=== PATIENT | female | born 1965 | race Caucasian/White ===

== ENCOUNTER 2016-11-21 09:54 | Emergency (ER) | payer SELFPAY ==
[2016-11-21 09:59] VITALS: BP 132/65
--- NOTE | 2016-11-21 11:11 | ER Document Report ---
HPI - HPI Patient complains to provider of: medication refill Onset: This morning Quality of pain: No pain Pain Level: Denies Context: Patient presents to the emergency department with request for medication refill for her blood pressure. Patient reports her provider Pham Gifford recently moved from [facility] and she ran out of medications this morning. She has not established herself with another provider. She denies all symptoms today she denies headache fever vomiting diarrhea. She just request a medication refill. Associated Symptoms: None Exacerbated by: Denies Relieved by: Denies Similar symptoms previously: Yes Recently seen / treated by doctor: No - REPRODUCTIVE LMP: menopause Reproductive: DENIES: : - DERM Skin Color: Normal Past Medical History - Social History Smoking Status: Current Every Day Smoker Cigarette use (# per day): Yes - 1ppd Frequency of alcohol use: None Drug Abuse: None Lives with: Family Family History: Arthritis, CAD, COPD, DM, Hyperlipidemia, Hypertension Patient has suicidal ideation: No Patient has homicidal ideation: No - Past Medical History Cardiac Medical History: Reports: Hx Heart Attack - 2009, Hx Hypercholesterolemia, Hx Hypertension Pulmonary Medical History: Reports: Hx COPD Renal/ Medical History: Denies: Hx Peritoneal Dialysis Musculoskeltal Medical History: Reports Hx Musculoskeletal Trauma - right ring finger Traumatic Medical History: Reports: Hx Fractures - finger Past Surgical History: Reports: Hx Adenoidectomy, Hx Oral Surgery - dental surgery, Hx Tonsillectomy, Other - mastoidectomy both erars - Immunizations Immunizations up to date: Yes Hx Diphtheria, Pertussis, Tetanus Vaccination: Yes - 10/07/2005 Vertical Provider Document - CONSTITUTIONAL Agree With Documented VS: Yes Exam Limitations: No Limitations General Appearance: WD/WN, No Apparent Distress - INFECTION CONTROL TRAVEL OUTSIDE OF THE [place]. IN LAST 30 DAYS: No - HEENT HEENT: Atraumatic, Normocephalic - RESPIRATORY Respiratory: Breath Sounds Normal, No Respiratory Distress O2 Sat by Pulse Oximetry: 96 - CARDIOVASCULAR Cardiovascular: Regular Rate - MUSCULOSKELETAL/EXTREMETIES Musculoskeletal/Extremeties: ANDRAE BRICEÑO - NEURO Level of Consciousness: Awake, Alert, Appropriate Motor/Sensory: No Motor Deficit - DERM Integumentary: Warm, Dry Course - Vital Signs Vital signs: Temp Pulse Resp BP Pulse Ox 98.1 F 99 16 132/65 H 96 11/21/16 09:58 11/21/16 09:58 11/21/16 09:58 11/21/16 09:58 11/21/16 09:58 Discharge - Discharge Clinical Impression: Medication refill, high blood pressure Condition: Stable Disposition: HOME, SELF-CARE Instructions: Angiotensin Converting Enzyme Inhibitor Medication ([facility]), High Blood Pressure ([facility]) Additional Instructions: *You have been evaluated for medication refill for your high blood pressure * Monitor your blood pressure *Take medication as prescribed *Follow up with a primary care provider within one week to establish care *Return to ED for worsening condition, changes, needs Prescriptions: Lisinopril/Hydrochlorothiazide [Lisinopril-Hctz 20-25 mg Tab] 1 each PO DAILY # 30 tablet Forms: Elevated Blood Pressure, Smoking Cessation Education
== END 2016-11-21 11:16 | disposition home or self-care (01) ==
LOC: ER 09:54
DX: Z76.0 Encounter for issue of repeat prescription (principal); I10 Essential (primary) hypertension; F17.210 Nicotine dependence, cigarettes, uncomplicated
CPT/HCPCS: 99281

== ENCOUNTER 2017-03-01 09:36 | Emergency (ER) | payer SELFPAY ==
[2017-03-01 09:58] VITALS: BP 118/66
--- NOTE | 2017-03-01 10:39 | ER Document Report ---
HPI - HPI Patient complains to provider of: left lower toothache Onset: Yesterday Onset/Duration: Sudden Quality of pain: Throbbing Severity: Mild Pain Level: 2 Context: States her fillings have started falling out of her teeth and left lower molar started hurting yesterday. Patient states pain radiates to left ear. Associated Symptoms: None Exacerbated by: Denies Relieved by: Denies Similar symptoms previously: Yes Recently seen / treated by doctor: No - ROS ROS below otherwise negative: Yes Systems Reviewed and Negative: Yes All other systems reviewed and negative - CONSTITUTIONAL Constitutional: DENIES: Fever - EENT EENT: DENIES: Congestion - NEURO Neurology: DENIES: Headache - CARDIOVASCULAR Cardiovascular: DENIES: Chest pain - RESPIRATORY Respiratory: DENIES: Trouble Breathing - GASTROINTESTINAL Gastrointestinal: DENIES: Abdominal Pain - URINARY Urinary: DENIES: Dysuria - REPRODUCTIVE Reproductive: DENIES: : - MUSCULOSKELETAL Musculoskeletal: DENIES: Extremity pain - DERM Skin Color: Normal Skin Problems: None Past Medical History - General Information source: Patient - Social History Smoking Status: Current Every Day Smoker Cigarette use (# per day): Yes Frequency of alcohol use: None Drug Abuse: None Lives with: Family Family History: Arthritis, CAD, COPD, DM, Hyperlipidemia, Hypertension Patient has suicidal ideation: No Patient has homicidal ideation: No - Past Medical History Cardiac Medical History: Reports: Hx Heart Attack - 2009, Hx Hypercholesterolemia, Hx Hypertension Pulmonary Medical History: Reports: Hx COPD Musculoskeltal Medical History: Reports Hx Musculoskeletal Trauma - right ring finger Traumatic Medical History: Reports: Hx Fractures - finger Past Surgical History: Reports: Hx Adenoidectomy, Hx Oral Surgery - dental surgery, Hx Tonsillectomy, Other - mastoidectomy both erars - Immunizations Immunizations up to date: Yes Hx Diphtheria, Pertussis, Tetanus Vaccination: Yes - 10/07/2005 Vertical Provider Document - CONSTITUTIONAL Agree With Documented VS: Yes Exam Limitations: No Limitations General Appearance: WD/WN, No Apparent Distress - INFECTION CONTROL TRAVEL OUTSIDE OF THE [place].S. IN LAST 30 DAYS: No - HEENT HEENT: Atraumatic, Normal ENT Exam, Normocephalic Mouth Diagram: 1 - decay Notes: Patient has history of cholesteatoma left ear, no inflammation or infection noted on exam. - NECK Neck: Normal Inspection, Supple - RESPIRATORY Respiratory: Breath Sounds Normal, No Respiratory Distress O2 Sat by Pulse Oximetry: 100 - CARDIOVASCULAR Cardiovascular: Regular Rate, Regular Rhythm - MUSCULOSKELETAL/EXTREMETIES Musculoskeletal/Extremeties: ANDRAE BRICEÑO - NEURO Level of Consciousness: Awake, Alert, Appropriate - DERM Integumentary: Warm, Dry, No Rash Course - Re-evaluation Re-evalutation: 03/01/17 10:41 Patient states she is allergic to Augmentin, but can take amoxicillin without any problems. - Vital Signs Vital signs: Temp Pulse Resp BP Pulse Ox 98.2 F 60 16 118/66 100 03/01/17 09:55 03/01/17 09:55 03/01/17 09:55 03/01/17 09:55 03/01/17 09:55 Discharge - Discharge Clinical Impression: Pain, dental Condition: Good Disposition: HOME, SELF-CARE Instructions: Toothache ([facility]), Penicillin V K ([facility]), Oral Narcotic Medication ( [facility]) Additional Instructions: Antibiotics and pain medications as prescribed [id number] Motrin as needed for pain You must follow-up with your dentist for further evaluation Return as needed Prescriptions: Hydrocodone/Acetaminophen [[place] 5-325 mg Tablet] 1 tab PO PRN PRN #10 tablet PRN Reason: Penicillin V Potassium [Penicillin Vk 250 mg Tablet] 250 mg PO Q6 #28 tablet
== END 2017-03-01 10:45 | disposition home or self-care (01) ==
LOC: ER 09:36
DX: K08.89 Other specified disorders of teeth and supporting structures (principal); F17.210 Nicotine dependence, cigarettes, uncomplicated
CPT/HCPCS: 99282

== ENCOUNTER 2017-07-17 09:20 | Emergency (ER) | payer SELFPAY ==
[2017-07-17] MEDS ORDERED: CLINDAMYCIN HCL 150 MG CAPSULE PO ONE (11:08)
[2017-07-17] MEDS ORDERED: BUPIVACAINE HCL 0.5 % INJ/PF 30 ML SDV INJ ONE (11:09)
--- NOTE | 2017-07-17 11:09 | ER Document Report ---
HPI - HPI Patient complains to provider of: toothache Onset: Other - past couple of days, 2-3 Onset/Duration: Gradual Quality of pain: Achy, Throbbing Severity: Moderate Pain Level: 3 Associated Symptoms: Other - radiating to her ear Exacerbated by: Denies Relieved by: Denies Similar symptoms previously: Yes Recently seen / treated by doctor: No - CARDIOVASCULAR Cardiovascular: DENIES: Chest pain - REPRODUCTIVE Reproductive: DENIES: : Past Medical History - Social History Smoking Status: Current Every Day Smoker Chew tobacco use (# tins/day): - 30 Frequency of alcohol use: None Drug Abuse: None Family History: Arthritis, CAD, COPD, DM, Hyperlipidemia, Hypertension - Past Medical History Cardiac Medical History: Reports: Hx Heart Attack - 2009, Hx Hypercholesterolemia, Hx Hypertension Pulmonary Medical History: Reports: Hx COPD Renal/ Medical History: Denies: Hx Peritoneal Dialysis Musculoskeltal Medical History: Reports Hx Musculoskeletal Trauma - right ring finger Traumatic Medical History: Reports: Hx Fractures - finger Past Surgical History: Reports: Hx Adenoidectomy, Hx Oral Surgery - dental surgery, Hx Tonsillectomy, Other - mastoidectomy both erars - Immunizations Immunizations up to date: Yes Hx Diphtheria, Pertussis, Tetanus Vaccination: Yes - 10/07/2005 Vertical Provider Document - CONSTITUTIONAL Agree With Documented VS: Yes Notes: PHYSICAL EXAM GENERAL: Alert, interacts well. HEAD: Normocephalic, atraumatic. ENT: Evidence of dental decay and tenderness without abscess at tooth 19. Oral mucosa moist, tongue midline. Uvula midline. Airway patent. No evidence of tonsillar enlargement, peritonsillar abscess, retropharyngeal abscess. NECK: Full range of motion. Supple. Trachea midline. LUNGS: Clear to auscultation bilaterally, no wheezes, rales, or rhonchi. No respiratory distress. HEART: Regular rate and rhythm. No murmurs, gallops, or rubs. EXTREMITIES: Moves all 4 extremities spontaneously. No edema, radial and dorsalis pedis pulses 2/4 bilaterally. No cyanosis. NEUROLOGICAL: Alert and oriented x4. Normal speech. PSYCH: Normal affect, normal mood. SKIN: Warm, dry, normal turgor. No rashes or lesions noted. - INFECTION CONTROL TRAVEL OUTSIDE OF THE U.S. IN LAST 30 DAYS: No - RESPIRATORY O2 Sat by Pulse Oximetry: 98 Course - Re-evaluation Re-evalutation: 07/17/17 11:44 Presentation is most consistent with likely an infected tooth. Airway is patent. Vitals within normal limits. Patient is able swallow without any difficulty. There is no significant facial swelling. Patient will be started on antibiotics. I've instructed to follow-up with dentistry as earliest ability for definitive management. Return precautions and follow-up recommendations have been discussed at length. - Vital Signs Vital signs: Temp Pulse Resp BP Pulse Ox 98.4 F 68 13 130/58 H 98 07/17/17 09:29 07/17/17 09:29 07/17/17 09:29 07/17/17 09:29 07/17/17 09:29 Discharge - Discharge Clinical Impression: Tooth ache Condition: Good Disposition: HOME, SELF-CARE Instructions: Clindamycin ([facility]) Additional Instructions: TOOTHACHE: Your pain is due to dental decay. The tooth must be repaired in order for you to feel better. You will, therefore, be referred to a dentist. We do not have dentists on the staff at [facility]. Severe swelling or drainage around a tooth usually means a dental abscess. This also requires evaluation and treatment by the dentist, but antibiotics may be prescribed while awaiting dental treatment. You should be rechecked immediately if you develop major swelling of the face, increasing pain, a lump in the jaw or gums, headache, difficulty swallowing, or fever. CLINDAMYCIN: You have been given a prescription for the antibiotic clindamycin. It is often prescribed for infections in the mouth, such as dental infections or abscesses, and for skin infections due to MRSA. It's important that you take all the medication, unless instructed otherwise by your physician. Failure to complete the entire course can result in relapse of your condition. Common side effects of antibiotics include nausea, intestinal cramping, or diarrhea. Women may develop vaginal yeast infections, and babies can get yeast (thrush) in the mouth following the use of antibiotics. Contact your physician if you develop significant side effects from this medication. Allergy to this antibiotic can result in hives, wheezing, faintness, or itching. If symptoms of allergy occur, stop the medication and call the doctor. FOLLOW-UP CARE: You have been referred for follow-up care to the dentists listed below. Call the dentists office for an appointment as you were instructed or within the next two days. If you experience worsening or a significant change in your symptoms, notify the physician immediately or return to the Emergency Department at any time for re-evaluation. [facility] [address] [place], [place] mornings, by appointment [facility] [address] [place] [address] [facility] [address] [facility] [address] [facility] [email or web address] [address] [place] [address] ([phone] Saturday- 8:00am to 5:00 pm Will see patients from other [facility]. Charges based on income and family size and accepts Medicare, Medicaid, and Insurances Will pull molars [facility] [address] Hours of Operation 8:00 am - 4:30 pm weekdays The following dental offices accept Medicaid: [facility] Dr. Beavers Dr. Henry Dr. [place] Dr. Lacey Vinh Stoner L[place], and Liz oral surgery Dr. Young ([place]) Dr. Greenwood ([place]) [facility] Drs. Taylor and Harinder ([place]) Dr. Carlos ([place]) [facility] Dr. Luong ([place]) Drs. Chopra and ([place]) Medicaid Care Line Prescriptions: Clindamycin HCl 450 mg PO TID 7 Days capsule Referrals: [facility] [NO LOCAL MD] - Follow up as needed
[2017-07-17] MEDS ORDERED: ACETAMINOPHEN 325 MG TABLET PO ONE (11:46)
[2017-07-17 11:58] VITALS: BP 120/61
== END 2017-07-17 12:00 | disposition home or self-care (01) ==
LOC: ER 09:20
DX: K08.89 Other specified disorders of teeth and supporting structures (principal); H92.09 Otalgia, unspecified ear; F17.200 Nicotine dependence, unspecified, uncomplicated
CPT/HCPCS: 99282

== ENCOUNTER 2018-08-29 08:00 | Emergency (ER) | payer SELFPAY ==
[2018-08-29 08:10] VITALS: BP 130/67
[2018-08-29] MEDS ORDERED: HYDROCODONE/ACETAMINOPHEN 5-325 MG (6 TAB/ER DISP) PO PRN (08:35)
[2018-08-29] MEDS ORDERED: LIDOCAINE 2% VISCOUS SOLN 20 ML UDCUP PO ONE (08:35)
--- NOTE | 2018-08-29 08:41 | ER Document Report ---
HPI - HPI Time Seen by Provider: 08/29/18 08:28 Pain Level: 5 Notes: Patient is a 53-year-old female who presents to the ED complaining of left lower dental pain #9 x2 days, with swelling that started x1 day. She has not noticed any obvious purulent discharge. Patient states that she is still able to eat and drink, but does have a decreased p.o. intake due to the pain. She has tried some dzjx-lxz-wurjauy meds with minimal relief. No other concerns or complaints. Pt states that she is going to try to get an appointment with a dentist to have it pulled. Denies any headache, fever, head injury, neck pain, hoarseness, drooling, URI, sore throat, chest pain, palpitations, syncope, cough , shortness of breath, wheeze, dyspnea, abdominal pain, nausea/vomiting/diarrhea , urinary retention, dysuria, hematuria, or rash. - ROS Systems Reviewed and Negative: Yes All other systems reviewed and negative - REPRODUCTIVE Reproductive: DENIES: : Past Medical History - Social History Smoking Status: Never Smoker Family History: Arthritis, CAD, COPD, DM, Hyperlipidemia, Hypertension - Past Medical History Cardiac Medical History: Reports: Hx Heart Attack - 2010, Hx Hypercholesterolemia, Hx Hypertension Pulmonary Medical History: Reports: Hx COPD Renal/ Medical History: Denies: Hx Peritoneal Dialysis Musculoskeletal Medical History: Reports Hx Musculoskeletal Trauma - right ring finger Traumatic Medical History: Reports: Hx Fractures - finger Past Surgical History: Reports: Hx Adenoidectomy, Hx Oral Surgery - dental surgery, Hx Tonsillectomy, Other - mastoidectomy both erars - Immunizations Immunizations up to date: Yes Hx Diphtheria, Pertussis, Tetanus Vaccination: Yes - 10/07/2005 Vertical Provider Document - CONSTITUTIONAL Agree With Documented VS: Yes Notes: PHYSICAL EXAMINATION: GENERAL: Well-appearing, well-nourished and in no acute distress. A&Ox4. Answers questions appropriately. HEAD: Atraumatic, normocephalic. EYES: Pupils equal round and reactive to light, extraocular movements intact, sclera anicteric, conjunctiva are normal. ENT: EAC clear b/l. TM's intact b/l without erythema, fluid, or perforation. Nares patent and without discharge. oropharynx clear without exudates. No tonsilar hypertrophy or erythema. Moist mucous membranes. No sinus tenderness. Uvula midline. No palatine shift. No tongue protrusion. No respiratory compromise. Mouth: Poor dentition. + severe decay and mild gingivitis. No obvious abscess or discharge noted. + left lower mild facial swelling. + tenderness to tooth #19. NECK: Normal range of motion, supple without lymphadenopathy. No rigidity/ meningismus. LUNGS: Breath sounds clear to auscultation bilaterally and equal. No wheezes rales or rhonchi. HEART: Regular rate and rhythm without murmurs, rubs, gallops. NEUROLOGICAL: Cranial nerves grossly intact. Normal speech, normal gait. PSYCH: Normal mood, normal affect. SKIN: Warm, Dry, normal turgor, no rashes or lesions noted. - INFECTION CONTROL TRAVEL OUTSIDE OF THE U.S. IN LAST 30 DAYS: No Course - Re-evaluation Re-evalutation: 08/29/18 08:37 Patient is an afebrile, well-hydrated, 53-year-old female who presents to the ED with dental pain, suspect nerve root etiology versus infection. Vitals are acceptable. PE is otherwise unremarkable. No I&D, labs, or imaging warranted at this time based on H&P. Viscous lidocaine dispensed today. I will send her home with a prescription for penicillin and norco dispense pack. I reviewed with patient that I normally do not give any pain medication for dental pain, but pt does have noted swelling, tenderness, and does appear to be in discomfort. Reviewed that she most likely won't be able to get another narcotic prescription in the future as she needs to see a dentist. Pt in agreement. Low suspicion for any meningitis, sepsis, peritonsillar/pharyngeal abscess, respiratory compromise, Jt's, temporal arteritis, or other emergent systemic condition at this time. Patient is aware this condition can change from initial presentation and she needs to monitor symptoms closely. Conservative measures otherwise for symptoms. Call to schedule an appointment with a dentist for further evaluation and management. Recheck with your PCM this week as well. Return to the ED with any worsening/concerning symptoms otherwise as reviewed in discharge. Patient is in agreement. Pt states that she has a rash with augmentin, but has taken "amoxicillin/PCN all the time without any problems." Risk/benefit reviewed that PCN is the same class/family as amox/aug. Pt states she has not had any problems with PCN in the past other than the augmentin. - Vital Signs Vital signs: Temp Pulse Resp BP Pulse Ox 98.1 F 73 14 130/67 H 99 08/29/18 08:10 08/29/18 08:10 08/29/18 08:10 08/29/18 08:10 08/29/18 08:10 Discharge - Discharge Clinical Impression: Pain, dental Condition: Stable Disposition: HOME, SELF-CARE Instructions: Toothache ([facility]), Penicillin V K ([facility]) Additional Instructions: [place] and floss twice daily Maintain fluid intake Take antibiotics as directed Mouthwash, salt water gargles, peroxide rinse as needed Tylenol/ibuprofen as needed Recheck with PCM this week Call today/tomorrow and schedule an appointment with your dentist for further evaluation Return to the ED with any worsening symptoms and/or development of fever, headache, facial swelling, swelling of lips/tongue/throat, trouble swallowing, drooling, hoarseness, neck pain/stiffness, chest pain, palpitations, syncope, shortness of breath, trouble breathing, abdominal pain, n/v/d, numbness/tingling , or other worsening symptoms that are concerning to you. Prescriptions: Penicillin V Potassium [Penicillin Vk 250 mg Tablet] 500 mg PO BID #40 tablet Forms: Elevated Blood Pressure Referrals: LISANDRO ROMERO MD [Primary Care Provider] - Follow up as needed [facility] [Provider Group] - Follow up in 1 week
== END 2018-08-29 08:53 | disposition home or self-care (01) ==
LOC: ER 08:00
DX: K08.89 Other specified disorders of teeth and supporting structures (principal); R22.0 Localized swelling, mass and lump, head; R63.0 Anorexia; I10 Essential (primary) hypertension; J44.9 Chronic obstructive pulmonary disease, unspecified
CPT/HCPCS: 99282; J3490

== ENCOUNTER 2019-02-08 23:22 | Emergency (ER) | payer SELFPAY ==
[2019-02-08 23:27] VITALS: BP 139/69
[2019-02-08] MEDS ORDERED: PENICILLIN V POTASSIUM 500 MG TABLET PO ONE (23:32)
--- NOTE | 2019-02-08 23:36 | ER Document Report ---
ED General - General Chief Complaint: Toothache Stated Complaint: TOOTH PAIN Time Seen by Provider: 02/08/19 23:30 Primary Care Provider: LISANDRO ROMERO MD [Primary Care Provider] - Follow up as needed Information source: Patient TRAVEL OUTSIDE OF THE U.[place]. IN LAST 30 DAYS: No - HPI Patient complains to provider of: Left lower tooth infection Onset: Yesterday Onset/Duration: Persistent Quality of pain: Sharp Severity: Moderate Pain Level: 2 Associated symptoms: None Exacerbated by: Other - Chewing/eating Relieved by: Denies Similar symptoms previously: No Recently seen / treated by doctor: No Notes: 54-year-old female coming in with left lower jaw pain. Hurts to chew. Has a bad tooth. Has not seen the dentist for it yet. No fevers or chills. No nausea or vomiting. No trismus. No drooling. No some mandibular sublingual swelling. No dysphonia dyspnea or dysphagia - Related Data Allergies/Adverse Reactions: amoxicillin trihydrate [From Augmentin] Allergy (Intermediate, Verified 02/08/19 23:31) rash/hives Potassium Clavulanate * [From Augmentin] Allergy (Intermediate, Verified 02/08/19 23:31) rash/hives latex Allergy (Verified 02/08/19 23:31) Past Medical History - General Information source: Patient - Social History Smoking Status: Current Every Day Smoker Frequency of alcohol use: None Drug Abuse: None Family History: Arthritis, CAD, COPD, DM, Hyperlipidemia, Hypertension Patient has suicidal ideation: No Patient has homicidal ideation: No - Past Medical History Cardiac Medical History: Reports: Hx Heart Attack - 2009, Hx Hypercholesterolemia, Hx Hypertension Pulmonary Medical History: Reports: Hx COPD Renal/ Medical History: Denies: Hx Peritoneal Dialysis Musculoskeletal Medical History: Reports Hx Musculoskeletal Trauma - right ring finger Traumatic Medical History: Reports: Hx Fractures - finger Past Surgical History: Reports: Hx Adenoidectomy, Hx Oral Surgery - dental surgery, Hx Tonsillectomy, Other - mastoidectomy both erars - Immunizations Immunizations up to date: Yes Hx Diphtheria, Pertussis, Tetanus Vaccination: Yes - 10/07/2005 Review of Systems - Review of Systems Notes: Constitutional: No fevers. No chills. EENT: No eye redness. No eye pain. No ear pain. No sore throat. Positive for dental pain Cardiovascular: No chest pain. No palpitations. Respiratory: No cough. No shortness of breath. No respiratory distress. Gastrointestinal: No abdominal pain. No nausea, vomiting, or diarrhea. Genitourinary: Atraumatic. No lesions. No pain. No discharge. Musculoskeletal: Atraumatic. No swelling. No deformities. Skin: No rash or lesions. Lymphatic: No swollen lymph nodes. Neurologic: No headache. No syncope. Psychiatric: No suicidal or homicidal ideation. Physical Exam - Vital signs Vitals: Temp Pulse Resp BP Pulse Ox 98.1 F 76 18 139/69 H 99 02/08/19 23:24 02/08/19 23:24 02/08/19 23:24 02/08/19 23:24 02/08/19 23:24 - Notes Notes: General: Well-developed, well-nourished. In no acute distress. Non-toxic appearing. Cardiac: Well-perfused. Regular rate and rhythm. No murmurs, rubs, or gallops. Pulmonary: No respiratory distress. No cyanosis. Bilateral lung fiels are clear to auscultation. Abdominal: Non-distended. Non-rigid. Bowels sounds are present in all four quadrants. No guarding or rebound. HEENT: Left lower premolar tooth tender. No gum swelling. No visible abscess. No trismus. No drooling. No some mandibular sublingual swelling. No dysphonia dyspnea or dysphagia Neck: Supple. No adenopathy. No meningismus. Dermatologic: Warm with good turgor. No rash. Atraumatic. Chest: Atraumatic. No chest wall tenderness to palpation. Musculoskeletal: Moves all extremities well. No range of motion deficits. no muscular or joint tenderness. No paraspinal muscle tenderness. no midline spinal tenderness or step-off. Genitourinary: Examination deferred Neurologic: No gross neurologic deficits. Psychiatric: Normal mood. Course - Vital Signs Vital signs: Temp Pulse Resp BP Pulse Ox 98.1 F 76 18 139/69 H 99 02/08/19 23:24 02/08/19 23:24 02/08/19 23:24 02/08/19 23:24 02/08/19 23:24 Discharge - Discharge Clinical Impression: Dental infection Condition: Good Disposition: HOME, SELF-CARE Instructions: [facility], Toothache ([facility]), Penicillin V K ([facility]) Prescriptions: Penicillin V Potassium [Penicillin Vk 500 mg Tablet] 500 mg PO QID #40 tablet Referrals: LISANDRO ROMERO MD [Primary Care Provider] - Follow up as needed
== END 2019-02-08 23:38 | disposition home or self-care (01) ==
LOC: ER 23:22
DX: K04.7 Periapical abscess without sinus (principal); K08.89 Other specified disorders of teeth and supporting structures; R68.84 Jaw pain; F17.200 Nicotine dependence, unspecified, uncomplicated; I10 Essential (primary) hypertension; J44.9 Chronic obstructive pulmonary disease, unspecified
CPT/HCPCS: 99282